=== PATIENT | male | born 1965 | race Caucasian/White ===

== ENCOUNTER 2021-06-21 18:01 | Emergency (ER) | payer OTHER ==
[2021-06-21] MEDS ORDERED: HYDROmorphone 1 MG/ML Syringe IVPUSH ONE (18:04)
[2021-06-21] MEDS ORDERED: Sodium Chloride 0.9% 10 ML Syringe FLUSH PRN (18:04)
[2021-06-21] MEDS ORDERED: Ondansetron 4 MG/2 ML SDV IVPUSH ONE (18:04)
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
[2021-06-21] MEDS ORDERED: HYDROmorphone 0.5 MG/0.5 ML Syringe IVPUSH ONE (19:05)
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
== END 2021-06-21 20:42 | disposition home or self-care (01) ==
LOC: JP.ED 18:01
DX: S42.211A Unspecified displaced fracture of surgical neck of right humerus, initial encounter for closed fracture (principal); V86.52XA Driver of snowmobile injured in nontraffic accident, initial encounter
CPT/HCPCS: 36415; 70450; 71046; 72125; 72170; 73060; 80053; 80307; 85025; 96374; 96375; 96376; 99284; J1170; J2405

== ENCOUNTER 2024-11-24 06:34 | Day surgery (SDC) | payer OTHER ==
[2024-11-24] MEDS ORDERED: Midazolam 1 MG/ML 2 ML SDV ONE (06:52)
[2024-11-24] MEDS ORDERED: Propofol 200 MG/20 ML SDV ONE (06:52)
[2024-11-24] MEDS ORDERED: fentaNYL 100 MCG/2 ML SDV ONE (06:52)
[2024-11-24] MEDS: Lactated Ringers 1,000 ML IV SCH (07:18)
== END 2024-11-24 09:26 | disposition home or self-care (01) ==
LOC: JP.SDS 06:34
PROVIDERS: ATTEND Family Medicine
DX: Z12.11 Encounter for screening for malignant neoplasm of colon (principal); K57.30 Diverticulosis of large intestine without perforation or abscess without bleeding; I10 Essential (primary) hypertension; E11.9 Type 2 diabetes mellitus without complications; E78.5 Hyperlipidemia, unspecified; K21.9 Gastro-esophageal reflux disease without esophagitis
CPT/HCPCS: 00812; 45378; J2250; J2704; J3010; J7120